=== PATIENT | female | born 1960 | race Caucasian/White ===

== ENCOUNTER 2017-04-08 02:20 | Emergency (ER) | payer BC ==
[2017-04-08] MEDS ORDERED: Sodium Chloride 0.9% 1,000 ML IV SCH ×2 (03:15→04:45)
--- NOTE | 2017-04-08 06:30 | EDM.PDOC ---
<Arya Torres - Last Filed: 04/08/17 06:52> ED HPI GENERAL MEDICAL PROBLEM - General Chief Complaint: General Stated Complaint: MEDICAL VIA [facility] Time Seen by Provider: 04/08/17 06:04 Source of Information: Reports: Patient, EMS, Family History Limitations: Reports: No Limitations - History of Present Illness INITIAL COMMENTS - FREE TEXT/NARRATIVE: This patient was brought in by EMS with the complaint of possibly choking. They were sitting at the table and her eating some pork chops when suddenly the patient sort of slumped over and dropped her face to the table. Then she started to fall over and her caught her and laid her on the floor. She didn't seem to be breathing so he did a Heimlich maneuver on her and then that didn't seem to produce any results so he checked her breathing and pulse she didn't seem to have one so he did a little bit of CPR on her for a few seconds and then she came right around. Altogether she seemed to be unresponsive for about 20 seconds. Patient says she feels fine now. She doesn't recall anything that happened she didn't feel dizzy before the episode and she does recall it ever choking on any kind of food. She does say that she's been outdoors all day long and drank about 10 years today. Other than that she really hadn't had any other liquids. She never had any kind of chest pain or palpitations or shortness of breath. Overall she feels just fine now. - Related Data Allergies Allergy/AdvReac Type Severity Reaction Status Date / Time No Known Allergies Allergy Verified 04/08/17 02:28 Home Meds: Home Meds NK [No Known Home Meds] 04/08/17 [History] Past Medical History DATA [employer]ESSING [employer]IT[employer] History: Reports: - Infectious Disease History Infectious Disease History: Reports: Chicken Pox - Past Surgical History Female Surgical History: Reports: Section Musculoskeletal Surgical History: Reports: Other (See Below) Other Musculoskeletal Surgeries/Procedures:: back surgery Social & Family History - Tobacco Use Smoking Status *Q: Current Every Day Smoker Years of Tobacco use: 20 Packs/Tins Daily: 0.5 - Caffeine Use Caffeine Use: Reports: Coffee - Recreational Drug Use Recreational Drug Use: No ED ROS GENERAL - Review of Systems Review Of Systems: See Below Constitutional: Reports: No Symptoms, Weight Gain Respiratory: Reports: No Symptoms Cardiovascular: Reports: Syncope. Denies: Chest Pain, Blood Pressure Problem ( She said her blood pressures normally kind of low), Lightheadedness, Palpitations Endocrine: Reports: No Symptoms GI/Abdominal: Reports: No Symptoms : Reports: No Symptoms Musculoskeletal: Reports: No Symptoms Skin: Reports: No Symptoms Neurological: Reports: No Symptoms Psychiatric: Reports: No Symptoms Hematologic/Lymphatic: Reports: No Symptoms ED EXAM, GENERAL - Physical Exam Exam: See Below Exam Limited By: No Limitations General Appearance: Alert, WD/WN, No Apparent Distress (This lady is happy pleasant smiling she speaks in a normal voice) Eye Exam: Bilateral Eye: EOMI, Normal Inspection, PERRL Nose: Normal Inspection Throat/Mouth: Normal Oropharynx Head: Atraumatic Neck: Normal Inspection, Full Range of Motion Respiratory/Chest: Lungs Clear Cardiovascular: Normal Peripheral Pulses, Regular Rate, Rhythm, No Murmur GI/Abdominal: Soft, Non-Tender Extremities: Normal Inspection, No Pedal Edema Neurological: Alert, Oriented, CN II-XII Intact, Normal Cognition, No Motor/ Sensory Deficits Psychiatric: Normal Affect Skin Exam: Warm, Dry Course - Vital Signs Last Recorded V/S: Last Vital Signs Temp 96.3 F 04/08/17 08:00 Pulse 72 04/08/17 08:00 Resp 15 04/08/17 08:00 BP 101/74 04/08/17 08:00 Pulse Ox 95 04/08/17 08:00 Orthostatic Blood Pressure [ 113/70 Standing] Orthostatic Blood Pressure [ 107/70 Sitting] Orthostatic Blood Pressure [ 100/57 Supine] - Orders/Labs/Meds Orders: Active Orders 24 hr Category Date Time Status EKG Documentation Completion [RC] ASDIRECTED Care 04/08/17 03:02 Active Orthostatic Vital Signs [RC] ASDIRECTED Care 04/08/17 06:41 Active Sodium Chloride 0.9% [Normal Saline] 1,000 ml Med 04/08/17 03:15 Active IV ASDIRECTED Sodium Chloride 0.9% [Normal Saline] 1,000 ml Med 04/08/17 04:45 Active IV ASDIRECTED EKG 12 Lead [EK] Urgent Ther 04/08/17 03:00 Ordered Medication Orders Sodium Chloride (Normal Saline) 1,000 mls @ 999 mls/hr IV ASDIRECTED KATERINE Last Admin: 04/08/17 03:33 Dose: 999 mls/hr Sodium Chloride (Normal Saline) 1,000 mls @ 500 mls/hr IV ASDIRECTED KATERINE Last Admin: 04/08/17 04:34 Dose: 500 mls/hr Labs: Laboratory Tests 04/08/17 04/08/17 04/08/17 Range/Units 03:12 03:12 03:12 WBC 8.0 (4.5-11.0) K/uL RBC 3.84 (3.30-5.50) M/uL Hgb 11.8 L (12.0-15.0) g/dL Hct 35.1 L (36.0-48.0) % MCV 91 (80-98) fL MCH 31 (27-31) pg MCHC 34 (32-36) % Plt Count 124 L (150-400) K/uL Neut % (Auto) 72 H (36-66) % Lymph % (Auto) 18 L (24-44) % Upson % (Auto) 9 H (2-6) % Eos % (Auto) 1 L (2-4) % Baso % (Auto) 0 (0-1) % Sodium 137 L (140-148) mmol/L Potassium 3.4 L (3.6-5.2) mmol/L Chloride 100 (100-108) mmol/L Carbon Dioxide 24 (21-32) mmol/L Anion Gap 16.4 H (5.0-14.0) mmol/L BUN 12 (7-18) mg/dL Creatinine 0.7 (0.6-1.0) mg/dL Est Cr Clr Drug Dosing 94.73 mL/min Estimated GFR (MDRD) > 60 (>60) Glucose 101 (74-106) mg/dL Calcium 7.8 L (8.5-10.1) mg/dL Total Bilirubin 0.3 (0.2-1.0) mg/dL AST 412 H (15-37) U/L ALT 309 H (12-78) U/L Alkaline Phosphatase 87 (46-116) U/L Troponin I < 0.017 (0.000-0.056) ng/mL Total Protein 6.3 L (6.4-8.2) g/dL Albumin 3.3 L (3.4-5.0) g/dL Globulin 3.0 (2.3-3.5) g/dL Albumin/Globulin Ratio 1.1 L (1.2-2.2) Urine Color Urine Appearance Urine pH (4.5-8.0) Ur Specific [place] (1.008-1.030) Urine Protein (NEGATIVE) mg/dL Urine Glucose (UA) (NEGATIVE) mg/dL Urine Ketones (NEGATIVE) mg/dL Urine Occult Blood (NEGATIVE) Urine Nitrite (NEGATIVE) Urine Bilirubin (NEGATIVE) Urine Urobilinogen (NORMAL) mg/dL Ur Leukocyte Esterase (NEGATIVE) Urine RBC (0-5) Urine WBC (0-5) Ur Epithelial Cells Amorphous Sediment Urine Bacteria Urine Mucus Ethyl Alcohol 166 mg/dL 04/08/17 04/08/17 Range/Units 06:50 08:02 WBC (4.5-11.0) K/uL RBC (3.30-5.50) M/uL Hgb (12.0-15.0) g/dL Hct (36.0-48.0) % MCV (80-98) fL MCH (27-31) pg MCHC (32-36) % Plt Count (150-400) K/uL Neut % (Auto) (36-66) % Lymph % (Auto) (24-44) % Upson % (Auto) (2-6) % Eos % (Auto) (2-4) % Baso % (Auto) (0-1) % Sodium (140-148) mmol/L Potassium (3.6-5.2) mmol/L Chloride (100-108) mmol/L Carbon Dioxide (21-32) mmol/L Anion Gap (5.0-14.0) mmol/L BUN (7-18) mg/dL Creatinine (0.6-1.0) mg/dL Est Cr Clr Drug Dosing mL/min Estimated GFR (MDRD) (>60) Glucose (74-106) mg/dL Calcium (8.5-10.1) mg/dL Total Bilirubin (0.2-1.0) mg/dL AST (15-37) U/L ALT (12-78) U/L Alkaline Phosphatase (46-116) U/L Troponin I < 0.017 (0.000-0.056) ng/mL Total Protein (6.4-8.2) g/dL Albumin (3.4-5.0) g/dL Globulin (2.3-3.5) g/dL Albumin/Globulin Ratio (1.2-2.2) Urine Color Yellow Urine Appearance Clear Urine pH 5.0 (4.5-8.0) Ur Specific [place] 1.010 (1.008-1.030) Urine Protein Negative (NEGATIVE) mg/dL Urine Glucose (UA) Normal (NEGATIVE) mg/dL Urine Ketones Negative (NEGATIVE) mg/dL Urine Occult Blood Negative (NEGATIVE) Urine Nitrite Negative (NEGATIVE) Urine Bilirubin Negative (NEGATIVE) Urine Urobilinogen Normal (NORMAL) mg/dL Ur Leukocyte Esterase Negative (NEGATIVE) Urine RBC Not seen (0-5) Urine WBC 0-5 (0-5) Ur Epithelial Cells Not seen Amorphous Sediment Not seen Urine Bacteria Rare Urine Mucus Not seen Ethyl Alcohol mg/dL Meds: Medications Generic Name Dose Route Start Last Admin Trade Name Freq PRN Reason Stop Dose Admin Sodium Chloride 1,000 mls @ 999 mls/hr 04/08/17 03:15 04/08/17 03:33 Normal Saline IV 999 mls/hr ASDIRECTED KATERINE Administration Sodium Chloride 1,000 mls @ 500 mls/hr 04/08/17 04:45 04/08/17 04:34 Normal Saline IV 500 mls/hr ASDIRECTED KATERINE Administration - Re-Assessments/Exams Free Text/Narrative Re-Assessment/Exam: 04/08/17 06:42 Initial EKG shows sinus rhythm at 67 beats per minute RSR prime in V1 V2 and nonspecific T. changes. Three-hour EKG is unchanged. A three-hour troponin as been ordered and is pending The patient has received 2 L IV normal saline here in addition to what she received by EMS. Her last blood pressure showed a systolic in the upper 80s. Orthostatics are negative. Her labs were noted and BUN/creatinine was in the normal range. She looks well-nourished and well-hydrated. Also of note slight hypoalbuminemia and hypocalcemia which corrects to 8.4. Potassium 3.4 and lady who does not use diuretics. I spoke with her about nutrition and hydration and alcohol intake. I also discussed potassium supplement the patient with a little bit of salt substitute. She's aware of the EKG changes. My plan is to do a three-hour troponin and if this is negative she'll be discharged home and she should followup with her doctor early next week. She lives in [place] so will be discharged with copies of her labs and EKGs. The patient will be turned over to Dr. Powers at 7 AM Departure - Departure Disposition: Home, Self-Care 01 Clinical Impression: Syncope and collapse - Discharge Information Forms: ED Department Discharge Additional Instructions: Follow up with primary care physician next week in [place] Avoids consumption of alcohol. He well hydrated by drinking plenty of liquids other than alcohol <Migue Ch - Last Filed: 04/08/17 08:30> Departure - Departure Time of Disposition: 08:29 Condition: good
[2017-04-08 08:24] VITALS: BP 101/74
== END 2017-04-08 09:27 | disposition home or self-care (01) ==
LOC: JP.ED 02:20
DX: R55 Syncope and collapse (principal); F17.210 Nicotine dependence, cigarettes, uncomplicated; Z98.890 Other specified postprocedural states
CPT/HCPCS: 36415; 80053; 81001; 84484; 85025; 93005; 96360; 96361; 99284; G0480; J7040